=== PATIENT | male | born 1960 | race Two or more races ===

== ENCOUNTER 2017-08-25 14:20 | Emergency (ER) | payer MEDICAID, OTHER ==
[~2017-08-25] VITALS: Ht 177.8 cm; Wt 113.4 kg
--- NOTE | 2017-08-25 15:00 | NUR ---
PT CAME IN WITH C/O R SIDE NUMBESS SORT OF LIKE A "PINCHED NERVE" FEEL, STABBING SENSATION ON THE R SIDE NECK AREA AND NUMBNESS THROUGH RIGHT SIDE OF BODY. VSS. PT AAX3. SEEN BY FOR EVAL. SAFETY AND COMFORT MEASURES PROVIDED. WILL MONITOR.
--- NOTE | 2017-08-25 17:10 | NUR ---
IV ACCESS STARTED. BLOOD DRAWN FOR LABS.
[2017-08-25 17:26] LABS: BASOPHILS % (AUTO) 0.3 % (0.0-2.0); EOSINOPHILS % (AUTO) 0.4 % (0.0-6.0); HEMATOCRIT 43 % (39-51); LYMPHOCYTES # (AUTO) 1.7 /CMM (0.8-4.8); LYMPHOCYTES % (AUTO) 18.1 % (20.0-44.0); MEAN CORPUSCULAR HGB CONC 35 g/dl (31.0-36.0); MEAN CORPUSCULAR VOLUME 90 fL (80-96); MONOCYTES # (AUTO) 0.6 /CMM (0.1-1.30); MONOCYTES % (AUTO) 6.4 % (2.0-12.0); NEUTROPHILS % (AUTO) 74.8 % (43.0-81.0); PLATELET COUNT (AUTO) 234 /CMM (150-450); RDW COEFFICIENT OF VARIATION 12.6 (11.5-15.0); RED BLOOD CELL COUNT(AUTO) 4.71 MIL/uL (4.5-6.0); WHITE BLOOD COUNT (AUTO) 9.3 K/uL (4.3-11.0)
[2017-08-25 17:37] LABS: CALCIUM, SERUM 9.1 mg/dL (8.5-10.1); POTASSIUM 3.8 mmol/L (3.5-5.1)
--- NOTE | 2017-08-25 18:02 | NUR ---
MRI APPROVED,TECH WILL BE NOTIFYED
--- NOTE | 2017-08-25 18:02 | NUR ---
TEXTED DR. BLAND FOR MRI APPROVAL.
[2017-08-25 18:03] LABS: INR 0.94 (0.85-1.15)
--- NOTE | 2017-08-25 18:29 | NUR ---
RECEIVED CALL FROM JAVIER FROM RADIOLOGY DEPARTMENT, HE SAID THE MRI WAS APPROVED AND THE ETA FOR THE TECH IS [phone]
--- NOTE | 2017-08-25 19:03 | NUR ---
REPORT REC'D FROM ESRG GÓMEZ FOR EDER.
--- NOTE | 2017-08-25 19:50 | NUR ---
SHANK TURNER AT BED SIDE
--- NOTE | 2017-08-25 20:58 | NUR ---
PT RETURNED FROM MRI VIA WC.
--- NOTE | 2017-08-25 21:15 | NUR ---
IV removed. Catheter intact and site benign. Pressure and 4x4 applied to site. No bleeding noted.
--- NOTE | 2017-08-25 21:59 | NUR ---
CALLING [facility] RE: MRI READ.
--- NOTE | 2017-08-25 23:15 | NUR ---
Patient discharged to home in stable condition. Written and verbal after care instructions given. Patient verbalizes understanding of instruction. PT REC'D A COPY OF ALL FINDINGS. PT TO F/U WITH NEUROLOGIST. PT IS WAITING FOR DISK OF IMAGES. VSS. NAD NOTED.
[2017-08-25 23:46] VITALS: BP 135/87
[2017-08-26] MEDS ORDERED: GADODIAMIDE 2.5 MMOL/5 ML VIAL IJ ONE (12:42)
[2017-08-26] MEDS ORDERED: GADODIAMIDE 5 MMOL/10 ML VIAL IJ ONE (12:42)
== END 2017-08-25 23:47 | disposition home or self-care (01) ==
LOC: ER 14:25
DX: R20.2 Paresthesia of skin (principal); G89.29 Other chronic pain; E11.9 Type 2 diabetes mellitus without complications; M48.02 Spinal stenosis, cervical region; M25.78 Osteophyte, vertebrae
CPT/HCPCS: 36415; 70553-TC; 72125-TC; 80048-TC; 85025-TC; 85730-TC; A4606; Z7610

== ENCOUNTER 2020-05-05 20:07 | Emergency (ER) | payer MEDICAID, OTHER ==
[~2020-05-05] VITALS: Ht 177.8 cm; Wt 112.9 kg
--- NOTE | 2020-05-05 20:25 | NUR ---
PT BIBSELF C/O POSSIBLE MASS R NECK. DENIES SOB, NO DROOLING NOTED, O2 SAT 98% ROOM AIR. PT AAOX4. VITAL SIGNS STABLE. NO ACUTE DISTRESS NOTED AT THIS TIME. WILL CONTINUE TO MONITOR
[2020-05-05 20:54] LABS: BASOPHILS # (AUTO) 0.1 /CMM (0.0-0.2); EOSINOPHILS % (AUTO) 1.9 % (0.0-6.0); HEMATOCRIT 43 % (39-51); HEMOGLOBIN 14.5 g/dL (13.5-17.5); LYMPHOCYTES # (AUTO) 1.9 /CMM (0.8-4.8); LYMPHOCYTES % (AUTO) 23.2 % (20.0-44.0); MEAN CORPUSCULAR HGB CONC 34 g/dl (31.0-36.0); MEAN CORPUSCULAR VOLUME 93 fL (80-96); MONOCYTES # (AUTO) 0.4 /CMM (0.1-1.30); MONOCYTES % (AUTO) 5.6 % (2.0-12.0); NEUTROPHILS # (AUTO) 5.5 /CMM (1.8-8.9); NEUTROPHILS % (AUTO) 68.3 % (43.0-81.0); PLATELET COUNT (AUTO) 232 /CMM (150-450); RED BLOOD CELL COUNT(AUTO) 4.63 MIL/uL (4.5-6.0); WHITE BLOOD COUNT (AUTO) 8.1 K/uL (4.3-11.0)
[2020-05-05] MEDS ORDERED: IV NS 0.9% 250 ML IV ONE (21:00)
[2020-05-05] MEDS ORDERED: IOHEXOL-300 100 ML VIAL IV ONE (21:00)
[2020-05-05 21:06] LABS: CALCIUM, SERUM 9.1 mg/dL (8.5-10.1); CREATININE 1.3 mg/dL (0.6-1.3)
[2020-05-05] MEDS ORDERED: POTASSIUM CHLORIDE 20 MEQ TAB.PRT.SR PO ONE ×2 (21:51→22:00)
[2020-05-05] MEDS ORDERED: AMOX/CLAVULANATE 875 MG TABLET ONE (21:51)
[2020-05-05] MEDS ORDERED: AMOX/CLAVULANATE 875 MG TABLET PO ONE (22:00)
[2020-05-05] MEDS ORDERED: AMOX-430 PO (22:17)
--- NOTE | 2020-05-05 22:34 | NUR ---
Patient discharged to home in stable condition. Written and verbal after care instructions given. Patient verbalizes understanding of instruction.Pt ambulatory with a steady gait IV removed. Catheter intact and site benign. Pressure and 4x4 applied to site. No bleeding noted.
[2020-05-05 22:35] VITALS: BP 141/97
== END 2020-05-05 22:35 | disposition home or self-care (01) ==
LOC: ER 20:12
DX: K11.20 Sialoadenitis, unspecified (principal); E87.6 Hypokalemia; E11.9 Type 2 diabetes mellitus without complications; Z60.2 Problems related to living alone
CPT/HCPCS: 36415; 70491; 80048; 85025; 99285; J7050; Q9967